=== PATIENT | male | born 1990 | race Caucasian/White ===

== ENCOUNTER 2020-02-25 11:58 | Emergency (ER) | payer SELFPAY ==
[2020-02-25] MEDS: Sodium Chloride 0.9% 1,000 ML IV ONE (13:05)
[2020-02-25] MEDS: Ondansetron 4 MG/2 ML SDV IVPUSH ONE (13:08)
[2020-02-25 13:34] LABS: CHLORIDE,CL 104 mmol/L (98-107); SODIUM,NA 141 mmol/L (136-145)
[2020-02-25 13:40] LABS: ANION GAP 20.5 mmol/L (10-20)
--- NOTE | 2020-02-25 14:04 | EDM.PDOC ---
ED HPI GENERAL MEDICAL PROBLEM - General Chief Complaint: Behavioral/Psych Stated Complaint: ER Time Seen by Provider: 02/25/20 12:53 Source of Information: Reports: Patient - History of Present Illness INITIAL COMMENTS - FREE TEXT/NARRATIVE: Lisa is a 30 y/o male who comes to the ER accompanied by his mother after he was sent from the [facility]. He went to the clinic because he felt very anxious and felt his arms and legs tingle. He is pacing and will not sit down. RN placed patient in ER room and advised him to relax. The current ER patient volume as quite high the patient's mother came out into the hallway "Do something, he needs oxygen!" HOUSEMAN went to bedside and vital taken and stable. Patient admitted that he had been out drinking alcohol last night and smoked marijuana last night and again this AM. He reports feeling this way after smoking. He admits to regularly using marijuana, but never having this reaction before. Social & Family History - Alcohol Use Alcohol Use History: Yes Alcohol Use Comment: Admits being intoxicated last night - Recreational Drug Use Recreational Drug Use: Yes Drug Use in Last 12 Months: Yes Recreational Drug Type: Reports: Marijuana/Hashish Recreational Drug Use Frequency: Daily Review of Systems - Review of Systems Review Of Systems: See Below Constitutional: Reports: Weakness Eyes: Reports: No Symptoms Ears: Reports: No Symptoms Nose: Reports: No Symptoms Mouth/Throat: Reports: No Symptoms Respiratory: Reports: Shortness of Breath Cardiovascular: Reports: Palpitations GI/Abdominal: Reports: Nausea Genitourinary: Reports: No Symptoms Musculoskeletal: Reports: No Symptoms Skin: Reports: No Symptoms Neurological: Reports: Dizziness, Tingling, Weakness Psychiatric: Reports: Anxiety ED EXAM, GENERAL - Physical Exam Exam: See Below General Appearance: Alert, WD/WN (Adult male, very anxious and needing direction to relax.) Eye Exam: Right Eye: PERRL, Left Eye: Abnormal Pupil (large and sluggish) Ears: Normal External Exam, Normal Canal, Hearing Grossly Normal, Normal TMs Nose: Normal Inspection, Normal Mucosa Throat/Mouth: Normal Inspection, Normal Lips, Normal Teeth, Normal Gums, Normal Voice Head: Atraumatic, Normocephalic Neck: Normal Inspection, Supple Respiratory/Chest: No Respiratory Distress, Lungs Clear, Chest Non-Tender Cardiovascular: Normal Peripheral Pulses, No JVD, Tachycardia GI/Abdominal: Normal Bowel Sounds, Soft, Non-Tender (Male) Exam: Deferred Rectal (Males) Exam: Deferred Back Exam: Normal Inspection Extremities: Normal Inspection, Normal Range of Motion, Non-Tender, Normal Capillary Refill Neurological: Alert, Oriented, CN II-XII Intact Psychiatric: Anxious Skin Exam: Warm, Intact, Normal Color, Diaphoretic Lymphatic: No Adenopathy EKG INTERPRETATION EKG Date: 02/25/20 Time: 13:10 Rhythm: NSR Rate (Beats/Min): 83 [place]: Normal P-Wave: Present QRS: Normal ST-T: Normal QT: Normal Comparison: NA - No Prior EKG Course - Vital Signs Text/Narrative:: 1230 The patient was seen by the HOUSEMAN. Vital taken and stable at this time. Patient encouraged to relax with deep breathing. 1250 Patient examined further, Labs and EKG ordered. He was given a liter of NS and Zofran 4 mg IVP. 1430 Patient feeling better, able to void. HOUSEMAN discussed discharge instructions with patient. Questions answered. He remained stable in the ER until discharged to home by RN. Last Recorded V/S: Last Vital Signs Temp 36.6 C 02/25/20 12:00 Pulse 110 H 02/25/20 12:00 Resp 28 H 02/25/20 12:00 BP 120/84 02/25/20 12:00 Pulse Ox 98 02/25/20 12:00 - Orders/Labs/Meds Orders: Active Orders 24 hr Category Date Time Status EKG Documentation Completion [RC] STAT Care 02/25/20 12:54 Active UA RFX SHERIN AND CULT IF INDIC [URIN] Stat Lab 02/25/20 12:54 Ordered URINE DRUG SCREEN,POC [POC] Stat Lab 02/25/20 12:54 Ordered Labs: Laboratory Tests 02/25/20 02/25/20 Range/Units 13:08 13:08 WBC 8.4 (4.0-10.0) x10^3/uL RBC 4.52 (4.5-6.0) x10^6/uL Hgb 14.8 (14.0-18.0) g/dL Hct 40.7 (40.0-52.0) % MCV 90.0 (78.0-93.0) fL MCH 32.7 H (26.0-32.0) pg MCHC 36.4 H (32.0-36.0) g/dL RDW Coeff of Dick 12.1 (10.0-15.0) % Plt Count 239 (130-400) x10^3/uL Neut % (Auto) 84.8 H (50.0-80.0) % Lymph % (Auto) 8.2 L (25.0-50.0) % [place] % (Auto) 6.1 (2.0-11.0) % Eos % (Auto) 0.5 (0.0-4.0) % Baso % (Auto) 0.4 (0.2-1.2) % Sodium 141 (136-145) mmol/L Potassium 3.5 (3.5-5.1) mmol/L Chloride 104 (98-107) mmol/L Carbon Dioxide 20 L (21-32) mmol/L Anion Gap 20.5 H (10-20) mmol/L BUN 10 (7-18) mg/dL Creatinine 1.0 (0.70-1.30) mg/dL Est Cr Clr Drug Dosing TNP Estimated GFR (MDRD) > 60 Glucose 86 (74-106) mg/dL Calcium 9.1 (8.5-10.1) mg/dL Corrected Calcium 8.86 (8.5-10.1) mg/dL Magnesium 2.0 (1.8-2.4) mg/dL Total Bilirubin 0.4 (0.2-1.0) mg/dL AST 16 (15-37) U/L ALT 19 (16-63) U/L Alkaline Phosphatase 71 (46-116) U/L Total Protein 7.8 (6.4-8.2) g/dL Albumin 4.3 (3.4-5.0) g/dL Globulin 3.5 Albumin/Globulin Ratio 1.23 Amylase 61 (25-115) U/L Lipase 120 (73-393) U/L Ethyl Alcohol 40 H (0-3) mg/dL Meds: Medications Discontinued Medications Generic Name Dose Route Start Last Admin Trade Name Freq PRN Reason Stop Dose Admin Sodium Chloride 1,000 mls @ 999 mls/hr 02/25/20 12:54 02/25/20 13:05 Normal Saline IV 02/25/20 13:54 999 mls/hr ONETIME ONE Administration Ondansetron HCl 4 mg 02/25/20 12:54 02/25/20 13:08 Zofran IVPUSH 02/25/20 12:55 4 mg ONETIME ONE Administration Departure - Departure Time of Disposition: 14:41 Disposition: Home, Self-Care 01 Preliminary Cause of *Q: Cardiac Arrest Clinical Impression: Marijuana use, Anxiety Alcohol intoxication Qualifiers: Complication of substance-induced condition: with delirium Qualified Code(s): F10.921 - Alcohol use, unspecified with intoxication delirium - Discharge Information Instructions: Binge-Drinking Information, Adult, What You Need to Know About Marijuana Use Referrals: Aaron Carrero PA-C [Primary Care Provider] - Forms: ED Department Discharge Additional Instructions: -Stay hydrated today -Eat a hearty meal -Rest the remainder of today -Avoid driving a car today or operating and machinery -Consider seeking treatment for your substance abuse. -If you continue to feel anxious, please make an appointment to see your PCP to discuss treatment -Return to the ER as needed Sepsis Event Note (ED) - Evaluation Sepsis Screening Result: No Definite Risk - Focused Exam Vital Signs: Vital Signs Temp Pulse Resp BP Pulse Ox 02/25/20 12:00 36.6 C 110 H 28 H 120/84 98 - My Orders Last 24 Hours: My Active Orders 02/25/20 12:54 EKG Documentation Completion [RC] STAT UA RFX SHERIN AND CULT IF INDIC [URIN] Stat URINE DRUG SCREEN,POC [POC] Stat - Assessment/Plan Last 24 Hours: My Active Orders 02/25/20 12:54 EKG Documentation Completion [RC] STAT UA RFX SHERIN AND CULT IF INDIC [URIN] Stat URINE DRUG SCREEN,POC [POC] Stat Assessment:: 1)Alcohol Intoxication with Delirium 2)Marijuana Use 3)Anxiety Plan: -Discharge to home -Follow up with PCP for anxiety as needed
== END 2020-02-25 14:48 | disposition home or self-care (01) ==
LOC: VM.ED 11:58
DX: F41.9 Anxiety disorder, unspecified (principal); F10.121 Alcohol abuse with intoxication delirium; F12.90 Cannabis use, unspecified, uncomplicated; Y90.2 Blood alcohol level of 40-59 mg/100 ml
CPT/HCPCS: 80053; 80307; 81003; 82150; 83690; 83735; 85025; 93005; 96361; 96374; 99283; 99284-25; J2405; J7030

== ENCOUNTER 2020-06-21 01:11 | Emergency (ER) | payer SELFPAY ==
--- NOTE | 2020-06-21 01:55 | EDM.PDOC ---
ED HPI GENERAL MEDICAL PROBLEM - General Chief Complaint: Drug or Alcohol Abuse Stated Complaint: Medical Clearance Time Seen by Provider: 06/21/20 01:15 Source of Information: Reports: Patient History Limitations: Reports: No Limitations - History of Present Illness INITIAL COMMENTS - FREE TEXT/NARRATIVE: Patient comes into the emergency department with [facility] [employer] for medical clearance. Patient states that he was pulled over by police for suspicion of drinking and driving. Patient does admit to having greater than 9- 10 drinks this evening. Patient states that he has been drinking almost daily for the course of the last 2 months. He denies having any concerns regarding his alcohol intake for he states that he enjoys drinking the alcohol he does not feel he has a major problem. Patient also denies any suicidal ideation plans or intent. He states that his mental health is in a great place. Patient states that he has no injuries or medical concerns tonight. Patient states he is relatively healthy. He does have chronic lower back pain but states that that pain and discomfort that he normally has on a daily basis is not any different tonight. Patient states he was not involved in any altercations or recent illnesses. Denies of any pain, chest pain, shortness of breath, dizziness, lightheadedness, blurred vision, numbness or tingling, neck pain, abdominal pain, or peripheral edema. Onset: Today Quality: Reports: Other (none) Severity: Mild Improves with: Reports: None Worsens with: Reports: None Associated Symptoms: Reports: No Other Symptoms - Related Data Allergies Allergy/AdvReac Type Severity Reaction Status Date / Time amoxicillin Allergy Cannot Verified 02/25/20 14:55 Remember Home Meds: Home Meds . [No Known Home Meds] 02/25/20 [History] Past Medical History Psychiatric History: Reports: Anxiety ED ROS GENERAL - Review of Systems Review Of Systems: Comprehensive ROS is negative, except as noted in HPI. Constitutional: Reports: No Symptoms HEENT: Reports: No Symptoms Respiratory: Reports: No Symptoms Cardiovascular: Reports: No Symptoms Endocrine: Reports: No Symptoms GI/Abdominal: Reports: No Symptoms : Reports: No Symptoms Musculoskeletal: Reports: No Symptoms Skin: Reports: No Symptoms Neurological: Reports: No Symptoms Psychiatric: Reports: No Symptoms Hematologic/Lymphatic: Reports: No Symptoms Immunologic: Reports: No Symptoms ED EXAM, GENERAL - Physical Exam Exam: See Below Exam Limited By: Intoxication General Appearance: Alert, WD/WN, No Apparent Distress Nose: Normal Inspection, Normal Mucosa, No Blood Throat/Mouth: Normal Inspection, Normal Lips, Normal Voice, No Airway Compromise Head: Atraumatic, Normocephalic Neck: Normal Inspection, Supple, Non-Tender, Full Range of Motion Respiratory/Chest: No Respiratory Distress, Lungs Clear, Normal Breath Sounds, No Accessory Muscle Use, Chest Non-Tender Cardiovascular: Normal Peripheral Pulses, Regular Rate, Rhythm, No Edema, No Murmur, No Rub Peripheral Pulses: 4+: Brachial (R), Radial (L), Dorsalis Pedis (L), Dorsalis Pedis (R) GI/Abdominal: Normal Bowel Sounds, Soft, Non-Tender, No Mass Extremities: Normal Inspection, Normal Range of Motion, Non-Tender, No Pedal Edema, Normal Capillary Refill Neurological: Alert, Oriented, CN II-XII Intact, Normal Gait Psychiatric: Normal Affect, Normal Mood Skin Exam: Warm, Normal Color, Other (psoriasis ) Departure - Departure Time of Disposition: 01:45 Disposition: DC/Tfer to Court of Law En 21 Condition: Good Clinical Impression: Alcohol abuse, Medical clearance for incarceration Alcohol intoxication Qualifiers: Complication of substance-induced condition: with delirium Qualified Code(s): F10.921 - Alcohol use, unspecified with intoxication delirium - Discharge Information *PRESCRIPTION DRUG MONITORING PROGRAM REVIEWED*: Not Applicable *COPY OF PRESCRIPTION DRUG MONITORING REPORT IN PATIENT HORTENCIA: Not Applicable Instructions: Alcohol Use Disorder, Chemical Dependency Referrals: Ammon Anaya NP [Primary Care Provider] - - Assessment/Plan Assessment:: 1. Medical Clearance Plan: 1. Based off the information provided by the patient today and assessment findings. Patient is currently cleared to police custody. 2. Continue all at home medications 3. Activity and diet as tolerated 4. Can take over the counter Tylenol for any pain or discomfort 5. Follow up with PCP if symptoms continue, return, or progress 6. Call with any questions or concerns.
== END 2020-06-21 01:48 ==
LOC: VM.ED 01:11
DX: F10.121 Alcohol abuse with intoxication delirium (principal); Z88.0 Allergy status to penicillin
CPT/HCPCS: 99283

== ENCOUNTER 2020-08-02 00:45 | Emergency (ER) | payer SELFPAY ==
[2020-08-02] MEDS ORDERED: Albuterol/Ipratropium 3.0-0.5 MG/3 ML Neb Soln NEB ONE (01:01)
[2020-08-02] MEDS ORDERED: predniSONE 20 MG Tab PO STA (01:01)
--- NOTE | 2020-08-02 01:10 | EDM.PDOC ---
ED HPI GENERAL MEDICAL PROBLEM - General Chief Complaint: Asthma Stated Complaint: Shortness of breath, asthma, chest tightness Time Seen by Provider: 08/02/20 01:00 Source of Information: Reports: Patient History Limitations: Reports: No Limitations - History of Present Illness INITIAL COMMENTS - FREE TEXT/NARRATIVE: Patient comes emergency department today from home with complaints of shortness of breath and wheezing. This patient has a longstanding history of asthma for which he cannot afford his controller medication for his asthma. He uses his albuterol to control his symptoms of asthma. Since his nose started to melt he has been a little bit more short of breath and wheezing. [place] when he felt much more congestion and wheezing. He went home he was unable to sleep. He tried his albuterol inhaler although it did not help but it was empty. He has no fever no chills. No cough. No increased production of sputum. No loss of taste or smell. No fever no chills. No pain in his chest other than some tightness when he breathes. No abdominal pain nausea or vomiting. No Covid exposure no Covid symptoms. Treatments ASSISTANT [employer]OR OF [employer]ANT [employer]PERATIONS: Reports: Other (see below) Other Treatments ASSISTANT [employer]PER[employer]: Inhaler x1. - Related Data Allergies Allergy/AdvReac Type Severity Reaction Status Date / Time amoxicillin Allergy Cannot Verified 08/02/20 01:02 Remember Home Meds: Home Meds Albuterol [Ventolin HFA] 2 puff INH Q4H PRN #1 puff 08/02/20 [Rx] Fluticasone Propionate [Flovent HFA] 44 mcg .XX BID #1 puff 08/02/20 [Rx] Montelukast Sodium [Singulair] 10 mg PO DAILY #30 tablet 08/02/20 [Rx] predniSONE [Prednisone] 40 mg PO DAILY 4 Days #8 tablet 08/02/20 [Rx] Past Medical History Psychiatric History: Reports: Anxiety Dermatologic History: Reports: Psoriasis, Other (See Below) Other Dermatologic History: Acne ED ROS GENERAL - Review of Systems Review Of Systems: Comprehensive ROS is negative, except as noted in HPI. ED EXAM, GENERAL - Physical Exam Exam: See Below Free Text/Narrative:: This patient appears very alert appropriate no respiratory distress. He is laughing joking interactive with his friend in the room. Exam Limited By: No Limitations General Appearance: Alert, WD/WN, No Apparent Distress Eye Exam: Bilateral Eye: EOMI, PERRL Ears: Normal External Exam, Normal Canal, Normal TMs Ear Exam: Bilateral Ear: TM normal Nose: Normal Inspection, Normal Mucosa Throat/Mouth: Normal Inspection, Normal Lips, Normal Teeth, Normal Gums, Normal Oropharynx, Normal Voice, No Airway Compromise Head: Atraumatic, Normocephalic Neck: Normal Inspection, Supple, Non-Tender, Full Range of Motion Respiratory/Chest: No Respiratory Distress, No Accessory Muscle Use, Chest Non- Tender, Wheezing (Very faint expiratory wheezing bilaterally. No distress.) Cardiovascular: Normal Peripheral Pulses, Regular Rate, Rhythm Peripheral Pulses: 2+: Radial (L), Radial (R), Posterior Tibial (L), Posterior Tibial (R), Dorsalis Pedis (L), Dorsalis Pedis (R) (Male) Exam: Deferred Rectal (Males) Exam: Deferred Back Exam: Normal Inspection, Full Range of Motion Extremities: Normal Inspection, Normal Range of Motion, No Pedal Edema, Normal Capillary Refill Neurological: Alert, Oriented, Normal Cognition, Normal Gait, No Motor/Sensory Deficits Psychiatric: Normal Affect, Normal Mood Skin Exam: Warm, Dry, Intact, Normal Color, No Rash Course - Vital Signs Last Recorded V/S: Last Vital Signs Temp 97.9 F 08/02/20 00:45 Pulse 84 08/02/20 01:30 Resp 16 08/02/20 01:30 BP 133/87 08/02/20 00:45 Pulse Ox 96 08/02/20 01:30 - Orders/Labs/Meds Meds: Medications Discontinued Medications Generic Name Dose Route Start Last Admin Trade Name Isidro PRN Reason Stop Dose Admin Albuterol 0 gm 08/02/20 01:18 08/02/20 01:25 Albuterol Hfa 18 Gm Inhaler INH 1 inhaler Q4H PRN Administration Shortness of Breath Albuterol/Ipratropium 3 ml 08/02/20 01:01 08/02/20 01:10 Albuterol/Ipratropium 3.0-0.5 Mg/3 Ml Neb Soln NEB 08/02/20 01:02 3 ml ONETIME ONE Administration Prednisone 40 mg 08/02/20 01:01 08/02/20 01:09 Prednisone 20 Mg Tab PO 08/02/20 01:02 40 mg NOW STA Administration - Re-Assessments/Exams Free Text/Narrative Re-Assessment/Exam: 08/02/20 Patient was given 40 mg of prednisone orally. A DuoNeb nebulizer which she completed about half of it then he stated I feel just fine and I want to leave. Repeat evaluation he has no wheezing expiratory Damon and he never had any dyspnea. I did explain to the patient that it is paramount for him to use a controller medication to control his daily asthma symptoms. He needs to work with his primary care provider for something that he would be able to afford. I will prescribe him some fluticasone at this time which is one of the cheaper HFA inhalers. Also some prednisone for the next couple of days as well as albuterol. He is comfortable with this plan and his questions were answered. Also try some montelukast as this may be cheaper and could help with his asthma as well. Departure - Departure Time of Disposition: 01:17 Disposition: Home, Self-Care 01 Clinical Impression: Asthma exacerbation Qualifiers: Asthma severity: mild Asthma persistence: intermittent Qualified Code(s): J45.21 - Mild intermittent asthma with (acute) exacerbation - Discharge Information Prescriptions: Fluticasone Propionate [Flovent HFA] 44 mcg .XX BID #1 puff predniSONE [Prednisone] 40 mg PO DAILY 4 Days #8 tablet Montelukast Sodium [Singulair] 10 mg PO DAILY #30 tablet Albuterol [Ventolin HFA] 2 puff INH Q4H PRN #1 puff PRN Reason: Wheezing Instructions: Asthma, Adult, [id number] Referrals: PCP,None [Ordering Only Provider] - Forms: ED Department Discharge Additional Instructions: Stay away from allergy triggers. Albuterol MDI, 2 puffs every 4 hrs as needed for SOB wheezing. 1 MDI dispensed from the ED. Prednisone 40mg daily for the next 5 days. RX sent to [facility]. Fluticasone HFA inhaler, 2 puffs twice daily to control your Asthma. Rx sent to the pharmacy. If unable to afford the Fluticasone, may also try Montelukast 1 tablet daily to help with asthma symptoms as well. RX sent to [facility]. Return to the ED if new or worsening symptoms. Follow up with PCP in the next week for recheck. Sepsis Event Note (ED) - Evaluation Sepsis Screening Result: No Definite Risk
[2020-08-02] MEDS ORDERED: Albuterol HFA 18 Gm Inhaler INH PRN (01:18)
== END 2020-08-02 01:30 | disposition home or self-care (01) ==
LOC: VM.ED 00:45
DX: J45.21 Mild intermittent asthma with (acute) exacerbation (principal); Z88.0 Allergy status to penicillin; Z79.899 Other long term (current) drug therapy
CPT/HCPCS: 94640; 99284; 99284-25; J7512; J7620-GY

== ENCOUNTER 2020-09-01 10:09 | Emergency (ER) | payer SELFPAY ==
[2020-09-01] MEDS ORDERED: LORazepam 1 MG Tab PO ONE (10:35)
--- NOTE | 2020-09-01 11:09 | EDM.PDOC ---
ED HPI GENERAL MEDICAL PROBLEM - General Chief Complaint: Behavioral/Psych Stated Complaint: FLU LIKE SYMPTOMS Time Seen by Provider: 09/01/20 10:20 Source of Information: Reports: Patient History Limitations: Reports: No Limitations - History of Present Illness INITIAL COMMENTS - FREE TEXT/NARRATIVE: Patient comes emergency department today from home with complaints of a panic attack and nausea. This patient drinks alcohol on the daily basis. Yesterday he drank all day and then into the evening. He did not eat much for food yesterday. This morning when he woke up he was very shaky and nauseated. He was worried that he was going into liver failure because his skin was yellow. He has nausea without vomiting. No chest pain no shortness of breath or difficulty breathing. No cough or congestion. No abdominal pain. No vomiting. No hematuria dysuria or urinary frequency. He does feel quite a bit better after he has been here and calm down his panic attack is improved. No COVID exposure no COVID symptoms. - Related Data Allergies Allergy/AdvReac Type Severity Reaction Status Date / Time amoxicillin Allergy Cannot Verified 09/01/20 10:28 Remember Home Meds: Home Meds Albuterol [Ventolin HFA] 2 puff INH Q4H PRN #1 puff 08/02/20 [Rx] Fluticasone Propionate [Flovent HFA] 44 mcg .XX BID #1 puff 08/02/20 [Rx] Montelukast Sodium [Singulair] 10 mg PO DAILY #30 tablet 08/02/20 [Rx] predniSONE [Prednisone] 40 mg PO DAILY 4 Days #8 tablet 08/02/20 [Rx] Past Medical History Respiratory History: Reports: Asthma Psychiatric History: Reports: Anxiety Dermatologic History: Reports: Psoriasis, Other (See Below) Other Dermatologic History: Acne Social & Family History - Tobacco Use Tobacco Use Status *Q: Never Tobacco User - Recreational Drug Use Recreational Drug Use: Yes Recreational Drug Type: Reports: Marijuana/Hashish Recreational Drug Use Frequency: Daily ED ROS GENERAL - Review of Systems Review Of Systems: Comprehensive ROS is negative, except as noted in HPI. ED EXAM, GENERAL - Physical Exam Exam: See Below Free Text/Narrative:: Patient is quite anxious when I enter the room. Is constantly moving looking about the room speaks very fast rambling. No confusion Exam Limited By: No Limitations General Appearance: Alert, WD/WN, No Apparent Distress Eye Exam: Bilateral Eye: EOMI, PERRL Ears: Normal External Exam, Normal TMs Nose: Normal Inspection, Normal Mucosa Throat/Mouth: Normal Inspection, Normal Lips, Normal Oropharynx, Normal Voice Head: Atraumatic, Normocephalic Neck: Normal Inspection, Supple, Non-Tender Respiratory/Chest: No Respiratory Distress, Lungs Clear, Normal Breath Sounds, No Accessory Muscle Use, Chest Non-Tender Cardiovascular: Normal Peripheral Pulses, Regular Rate, Rhythm Peripheral Pulses: 2+: Radial (L), Radial (R) GI/Abdominal: Normal Bowel Sounds, Soft, Non-Tender (Male) Exam: Deferred Rectal (Males) Exam: Deferred Back Exam: Normal Inspection, Full Range of Motion Extremities: Normal Inspection, Normal Range of Motion, Non-Tender, No Pedal Edema, Normal Capillary Refill Neurological: Alert, Oriented, Normal Cognition, No Motor/Sensory Deficits Psychiatric: Anxious Skin Exam: Warm, Dry, Intact, Normal Color Course - Vital Signs Last Recorded V/S: Last Vital Signs Temp 98.6 F 09/01/20 10:12 Pulse 105 H 09/01/20 10:12 Resp 24 H 09/01/20 10:12 BP 151/85 H 09/01/20 10:12 Pulse Ox 100 09/01/20 10:12 - Orders/Labs/Meds Labs: Laboratory Tests 09/01/20 09/01/20 Range/Units 10:50 10:50 WBC 4.9 (4.0-10.0) x10^3/uL RBC 4.70 (4.5-6.0) x10^6/uL Hgb 15.3 (14.0-18.0) g/dL Hct 43.2 (40.0-52.0) % MCV 91.9 (78.0-93.0) fL MCH 32.6 H (26.0-32.0) pg MCHC 35.4 (32.0-36.0) g/dL RDW Coeff of Dick 12.0 (10.0-15.0) % Plt Count 221 (130-400) x10^3/uL Neut % (Auto) 73.3 (50.0-80.0) % Lymph % (Auto) 16.2 L (25.0-50.0) % [place] % (Auto) 6.2 (2.0-11.0) % Eos % (Auto) 3.5 (0.0-4.0) % Baso % (Auto) 0.8 (0.2-1.2) % Sodium 142 (136-145) mmol/L Potassium 3.8 (3.5-5.1) mmol/L Chloride 105 (98-107) mmol/L Carbon Dioxide 23 (21-32) mmol/L Anion Gap 17.8 H (5-15) mmol/L BUN 12 (7-18) mg/dL Creatinine 1.0 (0.70-1.30) mg/dL Est Cr Clr Drug Dosing TNP Estimated GFR (MDRD) > 60 Glucose 88 (70-99) mg/dL Calcium 8.5 (8.5-10.1) mg/dL Corrected Calcium 8.42 L (8.5-10.1) mg/dL Total Bilirubin 0.4 (0.2-1.0) mg/dL AST 15 (15-37) U/L ALT 20 (16-63) U/L Alkaline Phosphatase 73 (46-116) U/L Total Protein 7.6 (6.4-8.2) g/dL Albumin 4.1 (3.4-5.0) g/dL Globulin 3.5 Albumin/Globulin Ratio 1.17 Ethyl Alcohol 24 H (0-3) mg/dL Meds: Medications Discontinued Medications Generic Name Dose Route Start Last Admin Trade Name Freq PRN Reason Stop Dose Admin Lorazepam 1 mg 09/01/20 10:35 09/01/20 10:51 Lorazepam 1 Mg Tab PO 09/01/20 10:36 1 mg ONETIME ONE Administration - Re-Assessments/Exams Free Text/Narrative Re-Assessment/Exam: 09/01/20 11:09 Lorazepam 1 mg p.o. Labs drawn. Laboratory evaluation is rather unremarkable. With a normal CBC, CMP with an anion gap of 17.8, normal liver enzymes. Alcohol 24. After the Ativan the patient feels much better. His nausea is resolved as well as his shaking necks and panic attack. I discussed with the patient that he is most likely not only suffering from a panic attack but also a hangover from drinking every day most days all of the day. He has no signs of liver damage at this time. HE refuses any assistance with alcohol treatment. Discharge directions as below are explained to the patient he was comfortable with this plan his questions are answered. Departure - Departure Time of Disposition: 11:31 Disposition: Home, Self-Care 01 Clinical Impression: Hangover without complication, Panic attack - Discharge Information Instructions: Panic Attack, [id number], Alcohol Intoxication, [id number], Alcohol Abuse and Nutrition Referrals: Aaron Carrero PA-C [Primary Care Provider] - Forms: ED Department Discharge Additional Instructions: Drink plenty of fluids today especially electrolyte containing fluids like gatorade and or powerade etc. Eat small frequent meals. Abstain from alcohol usage. Rest today. Recheck in the ED if new or worsening symptoms. Follow up with PCP in the next 4-6 days if not improving sooner if worse. Sepsis Event Note (ED) - Evaluation Sepsis Screening Result: No Definite Risk
[2020-09-01 11:16] LABS: ANION GAP 17.8 mmol/L (5-15); CHLORIDE,CL 105 mmol/L (98-107); SODIUM,NA 142 mmol/L (136-145)
== END 2020-09-01 11:51 | disposition home or self-care (01) ==
LOC: VM.ED 10:09
DX: F41.0 Panic disorder [episodic paroxysmal anxiety] (principal); F10.129 Alcohol abuse with intoxication, unspecified; J45.909 Unspecified asthma, uncomplicated; Y90.1 Blood alcohol level of 20-39 mg/100 ml; Z88.0 Allergy status to penicillin; Z79.899 Other long term (current) drug therapy
CPT/HCPCS: 36415; 80053; 80307; 85025; 99283; 99284; A9270-GY

== ENCOUNTER 2021-02-07 17:31 | Emergency (ER) | payer SELFPAY ==
--- NOTE | 2021-02-07 17:55 | EDM.PDOC ---
<Maricruz Roy - Last Filed: 02/07/21 18:08> ED HPI GENERAL MEDICAL PROBLEM - General Chief Complaint: General Stated Complaint: nausea, chills, bodyache Time Seen by Provider: 02/07/21 17:40 Source of Information: Reports: Patient History Limitations: Reports: No Limitations - History of Present Illness INITIAL COMMENTS - FREE TEXT/NARRATIVE: Patient comes in emergency department with complaints of nausea, body aches, chills, diarrhea. Patient states that started approximately 12 to 18 hours ago. He states that he has been around other individuals who have Covid19 symptoms and diagnoses. Patient states that he ended up calling the ambulance for he was feeling very fatigued currently. There is not anything that makes his symptoms better or worse. Patient also denies any chest pain, shortness of breath, dizziness, lightheadedness, blurred vision, peripheral edema, or concerns. Onset: Sudden Duration: Constant Location: Reports: Generalized Quality: Reports: Ache Severity: Moderate Improves with: Reports: None Worsens with: Reports: None Associated Symptoms: Reports: Fever/Chills, Loss of Appetite, Malaise, Nausea/Vomiting - Related Data Allergies Allergy/AdvReac Type Severity Reaction Status Date / Time amoxicillin Allergy Cannot Verified 02/07/21 18:07 Remember Home Meds: Home Meds . [No Known Home Meds] 02/07/21 [History] Past Medical History Respiratory History: Reports: Asthma Psychiatric History: Reports: Anxiety Dermatologic History: Reports: Psoriasis, Other (See Below) Other Dermatologic History: Acne ED ROS GENERAL - Review of Systems Review Of Systems: Comprehensive ROS is negative, except as noted in HPI. Constitutional: Reports: Chills, Malaise, Fatigue HEENT: Reports: No Symptoms Respiratory: Reports: No Symptoms Cardiovascular: Reports: No Symptoms Endocrine: Reports: No Symptoms GI/Abdominal: Reports: Nausea, Vomiting : Reports: No Symptoms Musculoskeletal: Reports: No Symptoms Skin: Reports: No Symptoms Neurological: Reports: No Symptoms Psychiatric: Reports: No Symptoms Hematologic/Lymphatic: Reports: No Symptoms Immunologic: Reports: No Symptoms ED EXAM, GENERAL - Physical Exam Exam: See Below Exam Limited By: No Limitations General Appearance: Alert, WD/WN, No Apparent Distress Head: Atraumatic, Normocephalic Neck: Normal Inspection, Supple, Non-Tender, Full Range of Motion Respiratory/Chest: No Respiratory Distress, Lungs Clear, Normal Breath Sounds, No Accessory Muscle Use, Chest Non-Tender Cardiovascular: Normal Peripheral Pulses, Tachycardia GI/Abdominal: Soft, Non-Tender, No Organomegaly, No Distention, No Abnormal Bruit, No Mass, Abnormal Bowel Sounds (hyperactive) Back Exam: Normal Inspection, Full Range of Motion Extremities: Normal Inspection, Normal Range of Motion, Non-Tender, No Pedal Edema, Normal Capillary Refill Neurological: Alert, Oriented, Normal Gait Psychiatric: Normal Affect, Normal Mood Skin Exam: Warm, Dry, Intact, Normal Color Departure - Departure Disposition: Home, Self-Care 01 Clinical Impression: Nausea - Discharge Information Instructions: Viral Illness, Adult Referrals: Aaron Carrero PA-C [Primary Care Provider] - Forms: ED Department Discharge Additional Instructions: 1. rest 2. increase your water intake 3. Continue all at home medications 4. Need to quarantine for 10 days from today and make a list of all the people who you have been in close contact (under 6 feet of distance and either libertarian without a mask on) with 48 hours prior to starting symptoms yesterday and let them know they should self isolated 5. Be prepared to answer your phone when the [facility] Department calls regarding follow up questions and recommendations 5. Can take over the counter Tylenol for any pain or discomfort 6. Follow up with PCP if symptoms continue, return, or progress 7. Call with any questions or concerns - Assessment/Plan Assessment:: 1. Plan: 1. Covid-19 test completed in ER 2. Zofran given in the ER to help with nausea <Danielito John - Last Filed: 02/09/21 11:49> Course - Vital Signs Text/Narrative:: Rapid Covid test negative patient instructed to follow-up with his primary care provider Last Recorded V/S: Last Vital Signs Temp 36.9 C 02/07/21 17:35 Pulse 88 02/07/21 17:35 Resp 18 02/07/21 17:35 BP 154/112 H 02/07/21 17:35 Pulse Ox 99 02/07/21 17:35 - Orders/Labs/Meds Labs: Laboratory Tests 02/07/21 Range/Units 17:50 SARS-CoV-2 RNA (SAM) Negative (NEGATIVE) Meds: Medications Discontinued Medications Generic Name Dose Route Start Last Admin Trade Name Freq PRN Reason Stop Dose Admin Ondansetron HCl 4 mg 02/07/21 17:49 02/07/21 18:01 Ondansetron 4 Mg Tab.Dis PO 02/07/21 17:50 4 mg ONETIME ONE Administration Departure - Departure Time of Disposition: 19:00 - Problem List & Annotations (1) Nausea SNOMED Code(s): 399226614 Code(s): R11.0 - NAUSEA Status: Acute
[2021-02-07] MEDS: Ondansetron 4 MG Tab.DIS PO ONE (18:01)
== END 2021-02-07 19:08 | disposition home or self-care (01) ==
LOC: VM.ED 17:31
DX: R11.0 Nausea (principal); J45.909 Unspecified asthma, uncomplicated; Z88.0 Allergy status to penicillin; Z20.822 Contact with and (suspected) exposure to COVID-19
CPT/HCPCS: 99283; 99284; A9270-GY; U0002

== ENCOUNTER 2021-12-26 20:40 | Emergency (ER) | payer SELFPAY ==
[2021-12-26] MEDS ORDERED: Sodium Chloride 0.9% 1,000 ML IV ONE ×2 (21:30→22:21)
[2021-12-26] MEDS ORDERED: Sodium Chloride 0.9% 10 ML Syringe FLUSH PRN (21:30)
[2021-12-26] MEDS ORDERED: Metoclopramide 10 MG/2 ML SDV IVPUSH ONE (21:47)
[2021-12-26 22:07] LABS: BARBITURATE SCREEN,URINE NEGATIVE (NEGATIVE); BENZODIAZEPINES SCREEN,URINE NEGATIVE (NEGATIVE); METHAMPHETAMINE SCREEN, URINE NEGATIVE (NEGATIVE)
[2021-12-26 22:08] LABS: BUPRENORPHINE SCREEN,URINE NEGATIVE (NEGATIVE); THC SCREEN,URINE 50 NG/ML POSITIVE (NEGATIVE)
[2021-12-26 22:14] LABS: ANION GAP 17.2 mmol/L (5-15)
[2021-12-26] MEDS ORDERED: NS + KCl 20mEq/L 1,000 ML IV SCH (22:30)
== END 2021-12-26 22:50 | disposition left against medical advice (07) ==
LOC: VM.ED 20:40 → VM.MS 22:27 → UNDOADMOB 22:27 → VM.ED 22:50
DX: F10.10 Alcohol abuse, uncomplicated (principal); F19.10 Other psychoactive substance abuse, uncomplicated; Z88.0 Allergy status to penicillin; Y90.5 Blood alcohol level of 100-119 mg/100 ml
CPT/HCPCS: 80053; 80305-QW; 80307; 81003; 83605; 83735; 85025; 93010; 96361; 96374; 99283-25; 99284; J2765; J7030

== ENCOUNTER 2021-12-27 00:05 | Emergency (ER) | payer SELFPAY ==
[2021-12-27 01:20] LABS: ANION GAP 14.3 mmol/L (5-15)
[2021-12-27] MEDS: LORazepam 2 MG/ML SDV SUBCUT ONE (01:35)
== END 2021-12-27 01:38 | disposition home or self-care (01) ==
LOC: VM.ED 00:05
DX: R00.2 Palpitations (principal); F41.9 Anxiety disorder, unspecified; F10.920 Alcohol use, unspecified with intoxication, uncomplicated; F12.90 Cannabis use, unspecified, uncomplicated; Y90.1 Blood alcohol level of 20-39 mg/100 ml
CPT/HCPCS: 36415; 80053; 80307; 83605; 83735; 84484; 93005; 93010; 96372; 99284; 99285; J2060